=== PATIENT | male | born 1955 | race Caucasian/White ===

== ENCOUNTER 2016-08-11 20:12 | Emergency (ER) | payer MEDICAID ==
[~2016-08-11 20:12] MED LIST: ALPRAZOLAM0.25 MG PO; AMLODIPINE BESY1 C12 PO; AMLODIPINE5 M1; ASPIRIN ADULT L81 M5 PO; CHOLESTYRAMINE; CYCLOBENZAPRINE5 MG PO; INVOKANA100 MG PO; LAC PO; LEADER MELATONIN5 MG PO; LEVAQUIN750 MG PO; METFORMIN HCL1000 MG PO; MOTRIN800 MG PO; PRINIVIL5 MG PO; PROAIR HFA0.09 MG/A1 INH; QUEP PO; SIMVASTATIN10 M1 PO; SIMVASTATIN20 M1 PO; TRAMADOL HCL50 MG PO
[2016-08-11 21:34] LABS: BASOPHIL % 0.3 % (0-2); PLATELET COUNT 326 x10^3mcL (130-400); RED CELL DISTRIBUTION WIDTH 13.3 % (11.5-14.5)
[2016-08-11 21:40] LABS: CALCIUM 8.9 mg/dL (8.5-10.1); CARBON DIOXIDE 29.8 mmol/L (21-32); CHLORIDE SERUM 103 mmol/L (98-107); CREATININE SERUM 1.2 mg/dL (0.7-1.3); GFR1 > 60 mL/min; GLUCOSE SERUM 214 mg/dL (74-106); POTASSIUM SERUM 3.9 mmol/L (3.5-5.1); SODIUM SERUM 139 mmol/L (136-145)
[2016-08-11 21:45] LABS: ALBUMIN 3.7 g/dL (3.4-5.0); ALKALINE PHOSPHATASE 70 U/L (46-116); ALT/SGPT 41 U/L (16-63); AST/SGOT 16 U/L (15-37); BILIRUBIN TOTAL 0.4 mg/dL (0.20-1.00); CHOLESTEROL 168 mg/dL (<200); HDL CHOLESTEROL 45 mg/dL (40-60); MAGNESIUM 2.1 mg/dL (1.8-2.4); PHOSPHOROUS 3.8 mg/dL (2.5-4.9); TOTAL PROTEIN, SERUM 7.6 g/dL (6.4-8.2)
[2016-08-11 23:22] LABS: microscopic required? NO
[2016-08-11 23:34] LABS: urine erythrocyte NEGATIVE (NEGATIVE)
[2016-08-12 00:37] VITALS: BP 142/82
== END 2016-08-12 00:37 | disposition home or self-care (01) ==
LOC: ED 20:12
PROVIDERS: Emergency Medicine
DX: R60.0 Localized edema (principal); T38.3X5A Adverse effect of insulin and oral hypoglycemic [antidiabetic] drugs, initial encounter; E11.9 Type 2 diabetes mellitus without complications; E78.00 Pure hypercholesterolemia, unspecified; I10 Essential (primary) hypertension; G89.29 Other chronic pain; R19.7 Diarrhea, unspecified; Z79.84 Long term (current) use of oral hypoglycemic drugs; Y92.89 Other specified places as the place of occurrence of the external cause
CPT/HCPCS: J1940

== ENCOUNTER 2018-01-24 18:39 | Inpatient (IN) | payer OTHER ==
[~2018-01-24] VITALS: Ht 177.8 cm; Wt 142.4 kg
[2018-01-24 19:20] LABS: BASOPHIL % 0.4 % (0-2); PLATELET COUNT 395 x10^3mcL (130-400); RED CELL DISTRIBUTION WIDTH 14.2 % (11.5-14.5)
[2018-01-24 19:30] LABS: CALCIUM 9.2 mg/dL (8.5-10.1); CARBON DIOXIDE 32.4 mmol/L (21-32); CHLORIDE SERUM 104 mmol/L (98-107); CREATININE SERUM 1.1 mg/dL (0.7-1.3); GFR1 > 60 mL/min; GLUCOSE SERUM 158 mg/dL (74-106); POTASSIUM SERUM 3.8 mmol/L (3.5-5.1); SODIUM SERUM 142 mmol/L (136-145)
[2018-01-24 19:34] LABS: ALBUMIN 3.7 g/dL (3.4-5.0); ALKALINE PHOSPHATASE 112 U/L (46-116); ALT/SGPT 67 U/L (16-63); AST/SGOT 39 U/L (15-37); BILIRUBIN TOTAL 0.48 mg/dL (0.20-1.00); TOTAL PROTEIN, SERUM 7.9 g/dL (6.4-8.2)
[2018-01-24] MEDS ORDERED: VICTOZA6 MG/M1 SC (19:44)
[2018-01-24] MEDS ORDERED: GLIPIZIDE ER10 M1 PO (19:47)
[2018-01-24] MEDS ORDERED: [UNRECOGNIZED DRUG - OTHER] SC (19:47)
[2018-01-24] MEDS ORDERED: BENAZEPRIL20 M1 PO (19:48)
[2018-01-24] MEDS ORDERED: BUSPIRONE HCL15 MG PO (19:48)
[2018-01-24] MEDS ORDERED: ATORVASTATIN CA40 M1 PO (19:48)
[2018-01-24] MEDS ORDERED: ALPRAZOLAM XR0.5 M2 (19:48)
[2018-01-24] MEDS ORDERED: DICLOFENAC POT.50 M1 PO (19:49)
[2018-01-24] MEDS ORDERED: NAPROXEN250 MG (19:49)
[2018-01-24] MEDS ORDERED: GABAPENTIN100 M2 (19:50)
[2018-01-24 21:25] LABS: MAGNESIUM 1.9 mg/dL (1.8-2.4); PHOSPHOROUS 3.9 mg/dL (2.5-4.9)
[2018-01-24 21:27] LABS: CHOLESTEROL/HDL RATIO 3.4
[2018-01-24 21:28] VITALS: BP 165/83
[2018-01-24 21:33] VITALS: Ht 177.8 cm; Wt 142.4 kg
[2018-01-24 21:33] LABS: T3 TOTAL 1.27 ng/mL
[2018-01-24 21:34] LABS: FREE T4 1.03 ng/dL (0.76-1.46); FREE THYROXINE INDEX 3.1 ug/dL (1.4-4.5); T4(THYROXINE) 9.2 ug/dL (4.7-13.3)
[2018-01-24 22:37] LABS: UA SPECIFIC GRAVITY >=1.030 (1.005-1.035); microscopic required? YES; urine erythrocyte NEGATIVE (NEGATIVE)
[2018-01-24 22:46] LABS: AMPHETAMINE QUAL UR NONE DETECTED (See below)
[2018-01-25 06:02] VITALS: BP 143/77
[2018-01-25 08:19] LABS: BASOPHIL % 0.4 % (0-2); PLATELET COUNT 372 x10^3mcL (130-400)
[2018-01-25 08:40] LABS: CALCIUM 9.3 mg/dL (8.5-10.1); CARBON DIOXIDE 29.4 mmol/L (21-32); CHLORIDE SERUM 100 mmol/L (98-107); CREATININE SERUM 1.2 mg/dL (0.7-1.3); GFR1 > 60 mL/min; GLUCOSE SERUM 161 mg/dL (74-106); POTASSIUM SERUM 4.1 mmol/L (3.5-5.1); SODIUM SERUM 139 mmol/L (136-145)
[2018-01-25 09:00] VITALS: BP 149/80
[2018-01-25 13:15] VITALS: BP 137/71
[2018-01-25 14:51] VITALS: BP 137/71
== END 2018-01-25 15:30 | disposition home or self-care (01) | DRG 203 ==
LOC: ED 18:39 → DU 20:43
PROVIDERS: Emergency Medicine; Internal Medicine
PROC: 3E0234Z Introduction of Serum, Toxoid and Vaccine into Muscle, Percutaneous Approach (ICD-10-PCS; principal; 2018-01-24)
DX: M94.0 Chondrocostal junction syndrome [Tietze] (principal); N17.0 Acute kidney failure with tubular necrosis; E11.65 Type 2 diabetes mellitus with hyperglycemia; Z68.42 Body mass index [BMI] 45.0-49.9, adult; F17.210 Nicotine dependence, cigarettes, uncomplicated; D50.9 Iron deficiency anemia, unspecified; E78.5 Hyperlipidemia, unspecified; I10 Essential (primary) hypertension; E78.00 Pure hypercholesterolemia, unspecified; F32.9 Major depressive disorder, single episode, unspecified; G89.29 Other chronic pain; M54.9 Dorsalgia, unspecified; Z79.84 Long term (current) use of oral hypoglycemic drugs; Z80.0 Family history of malignant neoplasm of digestive organs; Z82.5 Family history of asthma and other chronic lower respiratory diseases; Z83.49 Family history of other endocrine, nutritional and metabolic diseases; Z82.49 Family history of ischemic heart disease and other diseases of the circulatory system; Z90.49 Acquired absence of other specified parts of digestive tract; Z95.1 Presence of aortocoronary bypass graft; Z23 Encounter for immunization; Z79.899 Other long term (current) drug therapy
CPT/HCPCS: 82962; 83880; 84439; 90658; 90732; J7030; Q9967

== ENCOUNTER 2018-09-16 11:40 | Emergency (ER) | payer OTHER ==
[~2018-09-16] VITALS: Ht 175.3 cm; Wt 140.6 kg
[~2018-09-16 11:40] MED LIST changes: +ALPRAZOLAM XR0.5 M2; +ATORVASTATIN CA40 M1 PO; +BENAZEPRIL20 M1 PO; +BUSPIRONE HCL15 MG PO; +DICLOFENAC POT.50 M1 PO; +GABAPENTIN100 M2; +GLIPIZIDE ER10 M1 PO; +NAPROXEN250 MG; +VICTOZA6 MG/M1 SC; +[UNRECOGNIZED DRUG - OTHER] SC
[2018-09-16 11:43] VITALS: Ht 175.3 cm; Wt 140.6 kg
[2018-09-16 12:11] LABS: BASOPHIL % 0.6 % (0-2); PLATELET COUNT 333 x10^3mcL (130-400)
[2018-09-16 12:26] LABS: CALCIUM 8.9 mg/dL (8.5-10.1); CARBON DIOXIDE 28.6 mmol/L (21-32); CHLORIDE SERUM 103 mmol/L (98-107); GFR1 > 60 mL/min; GLUCOSE SERUM 136 mg/dL (74-106); POTASSIUM SERUM 3.9 mmol/L (3.5-5.1); SODIUM SERUM 139 mmol/L (136-145)
[2018-09-16 12:30] LABS: ALBUMIN 3.6 g/dL (3.4-5.0); ALKALINE PHOSPHATASE 96 U/L (46-116); ALT/SGPT 42 U/L (16-63); AST/SGOT 16 U/L (15-37); BILIRUBIN TOTAL 0.57 mg/dL (0.20-1.00)
[2018-09-16 15:15] VITALS: BP 167/91
== END 2018-09-16 15:15 | disposition home or self-care (01) ==
LOC: ED 11:40
PROVIDERS: Emergency Medicine
DX: R07.89 Other chest pain (principal); F41.9 Anxiety disorder, unspecified; I10 Essential (primary) hypertension; E11.9 Type 2 diabetes mellitus without complications; E78.00 Pure hypercholesterolemia, unspecified; G89.29 Other chronic pain; M54.9 Dorsalgia, unspecified
CPT/HCPCS: 82962; J2270; Q0092; Q9967

== ENCOUNTER 2019-08-12 14:24 | Emergency (ER) | payer OTHER ==
[~2019-08-12] VITALS: Ht 172.7 cm; Wt 143.8 kg
[2019-08-12 14:33] VITALS: Ht 172.7 cm; Wt 143.8 kg
[2019-08-12 15:38] LABS: BASOPHIL % 0.3 % (0-2); CALCIUM 9.4 mg/dL (8.5-10.1); CARBON DIOXIDE 28.7 mmol/L (21-32); CREATININE SERUM 1.5 mg/dL (0.7-1.3); PLATELET COUNT 290 x10^3mcL (130-400); POTASSIUM SERUM 4.2 mmol/L (3.5-5.1); RED CELL DISTRIBUTION WIDTH 13.1 % (11.5-14.5)
[2019-08-12 15:43] LABS: ALBUMIN 3.6 g/dL (3.4-5.0); BILIRUBIN TOTAL 0.4 mg/dL (0.20-1.00); TOTAL PROTEIN, SERUM 7.2 g/dL (6.4-8.2)
[2019-08-12 16:33] LABS: microscopic required? NO
[2019-08-12 17:08] LABS: UA SPECIFIC GRAVITY 1.025 (1.005-1.035); urine erythrocyte NEGATIVE (NEGATIVE)
[2019-08-12 17:40] VITALS: BP 161/60
== END 2019-08-12 17:40 | disposition home or self-care (01) ==
LOC: ED 14:24
PROVIDERS: Emergency Medicine
DX: M51.36 Other intervertebral disc degeneration, lumbar region (principal); M54.16 Radiculopathy, lumbar region; E11.65 Type 2 diabetes mellitus with hyperglycemia; I10 Essential (primary) hypertension; E66.01 Morbid (severe) obesity due to excess calories; E78.00 Pure hypercholesterolemia, unspecified; Z68.42 Body mass index [BMI] 45.0-49.9, adult; Z90.49 Acquired absence of other specified parts of digestive tract
CPT/HCPCS: J1885